=== PATIENT | female | born 1960 | race Caucasian/White ===

== ENCOUNTER → 2020-02-22 | Outpatient (CLI) | payer BC, OTHER ==
[~2020-02-22] MED LIST: CETI10TA74 PO; LEVO125T PO; OMEP20TA63 PO; OXYC1TAB15 PO
== END ==
LOC: LAB 08:52
PROVIDERS: ATTEND Obstetrics & Gynecology
DX: Z01.812 Encounter for preprocedural laboratory examination (principal); N87.9 Dysplasia of cervix uteri, unspecified; Z20.828 Contact with and (suspected) exposure to other viral communicable diseases
CPT/HCPCS: U0003

== ENCOUNTER → 2020-02-24 | Day surgery (SDC) | payer BC, OTHER ==
[~2020-02-24] VITALS: Ht 157.5 cm; Wt 102.1 kg
[~2020-02-24] MED LIST changes: +DEXAMETHASONE SOD PHOS 4 MG/ML VIAL ONE; +FERRIC SUBSULFATE 8 ML SOL.W.APPL TP ONE; +GLYCOPYRROLATE 1 MG/5 ML VIAL. ONE; +HYDROmorphone 2 MG/ML VIAL IVP PRN; +IV RINGERS,LACTATED 1000ML 1,000 ML IV SCH; +LIDOCAINE 1% PF 2 ML VIAL. ID PRN; +LIDOCAINE 1%/EPI 1:100,000 20 ML VIAL. ONE; +LIDOCAINE 2% PF 5 ML VIAL. ONE; +MORPHINE SULFATE 2 MG/ML VIAL. IVP PRN; +ONDANSETRON PF 4 MG/2 ML VIAL. IVP PRN; +ONDANSETRON PF 4 MG/2 ML VIAL. ONE; +PHENYLEPHRINE in 0.9% NACL PF 1 MG/10 ML SYRINGE. IV ONE; +PROCHLORPERAZINE 10 MG/2 ML VIAL. IVP PRN; +PROPOFOL 10 MG/ML (20ML) VIAL. IV ONE; +ceFAZolin SODIUM IV Push 1 GM VIAL. IVP PRN; +fentaNYL PF VIAL 100 MCG/2 ML VIAL IVP PRN; +fentaNYL PF VIAL 100 MCG/2 ML VIAL ONE
--- NOTE | 2020-02-24 07:13 | EKG ---
[facility] [address] [place] [address] Test Date: 2020-02-24 Test Time: 07:08:37 Pat Name: IVONNE BUTTS Department: Room: Gender: F [employer]: : 1960 Requested By: TO SONG Order Number: [id number] Reading MD: Measurements Intervals [place] Rate: 66 P: 43 UT: 160 QRS: 48 QRSD: 84 T: 49 QT: 396 QTc: 417 Interpretive Statements SINUS RHYTHM QRS(T) CONTOUR ABNORMALITY CONSISTENT WITH SEPTAL INFARCT AGE UNDETERMINED ABNORMAL ECG RI6.02 No previous ECG available for comparison
--- NOTE | 2020-02-24 08:33 | PDOC ---
BRIEF OPERATIVE NOTE Date: Feb 24, 2020 Pre-Op Diagnosis Cervical Dysplasia Post-Op Diagnosis same Procedure Performed Cervical Cone Biopsy Surgeon Dr. Faria Anesthesia Type: General Blood Loss 5 ml Specimens Obtained anterior and posterior lip of cervix Findings cervical dysplasia Complications none Operative Note see dictation TO FARIA Jr, MD Feb 24, 2020 08:33
--- NOTE | 2020-02-24 08:34 | DISCH ---
DISCHARGE INSTRUCTIONS Condition on Discharge Condition on Discharge: Stable Activity After Discharge Activity Instructions for Disc: Activity as tolerated Lifting Instructions after Dis: No heavy lifting Driving Instructions after Dis: Do not drive today Diet after Discharge Diet after Discharge: Regular Contacting the [facility]Ketan after DC Call your doctor for: Concerns you may have Follow-Up Follow up with: Dr. Faria in 2 wks TO FARIA Jr, MD Feb 24, 2020 08:34
--- NOTE | 2020-02-24 08:42 | OP ---
DATE OF SURGERY: 02/24/2020 PREOPERATIVE DIAGNOSIS: Cervical dysplasia. POSTOPERATIVE DIAGNOSIS: Cervical dysplasia. PROCEDURE: Cervical cone biopsy. SURGEON: To Faria MD ANESTHESIA: GETA. ESTIMATED BLOOD LOSS: 5 mL. COMPLICATIONS: None. FINDINGS: Cervical dysplasia. SPECIMENS: Anterior and posterior lip of the cervix. SUMMARY: A 59-year-old female with cervical dysplasia, who had a colposcopy that indicated satisfactory results. Therefore, the patient required cervical cone biopsy. She was counseled on risks, benefits and expectations and voiced a clear understanding to proceed. DESCRIPTION OF PROCEDURE: The patient was taken to surgery suite and placed in dorsal lithotomy position. She was prepped with Betadine solution and draped in sterile fashion. After adequate anesthesia, weighted speculum and curved [place] were placed vaginally. Anterior lip of the cervix grasped with single tooth tenaculum. 2-0 Vicryl sutures were placed at 3 o'clock and 9 o'clock positions to better stabilize the cervix. Cervix was injected with 1% lidocaine with epinephrine in a circumferential manner. With the cold knife cone, the anterior and posterior lip of the cervix were excised. The remaining cervix was cauterized with Bovie cautery for good hemostasis. The weighted speculum and curved Pratik were then removed as well as the single tooth tenaculum was removed. The patient tolerated the procedure well and was taken to recovery room in stable condition. Sponge and needle count correct x 3. TO FARIA MD DR: MARKUS/geraldine JOB#: [id number] / [id number]
[2020-02-24 09:21] VITALS: BP 135/74
== END | disposition home or self-care (01) ==
LOC: SURG 06:24 → EDUNIT# 08:00
PROVIDERS: ATTEND Obstetrics & Gynecology
DX: N87.9 Dysplasia of cervix uteri, unspecified (principal); I10 Essential (primary) hypertension; K21.9 Gastro-esophageal reflux disease without esophagitis; M19.90 Unspecified osteoarthritis, unspecified site; E66.9 Obesity, unspecified; E03.9 Hypothyroidism, unspecified; F32.9 Major depressive disorder, single episode, unspecified; Z90.710 Acquired absence of both cervix and uterus; Z98.890 Other specified postprocedural states; Z79.899 Other long term (current) drug therapy; Z87.891 Personal history of nicotine dependence; Z68.41 Body mass index [BMI] 40.0-44.9, adult
CPT/HCPCS: 57520; 93005; J0690; J1100; J2370; J2405; J2704; J3010; J3490